=== PATIENT | female | born 1950 | race Caucasian/White ===

== ENCOUNTER 2023-11-18 12:26 | Outpatient (OUT) | payer MEDICARE, BC, SELFPAY ==
--- NOTE | 2023-11-18 | XR_ITS ---
The [address] [address] Patient Name: BASIL JHAVERI MRN: [id number] date: 1950 Sex: F Assigned Patient Location: Current Patient Location: Accession/Order Number: [id number] Exam Date: 11/18/2023 12:27 Report Date: 11/19/2023 07:02 At the request of: ARELIS PERALTA Procedure: XR foot RT min 3V PROCEDURE: XR foot RT min 3V HISTORY: RIGHT FOOT PAIN ; plantar foot pain COMPARISON: None. FINDINGS: BONES:Mild degenerative change of first metatarsophalangeal joint. Calcaneal plantar spur. Achilles tendon degenerative enthesophyte. SOFT TISSUES:No visible soft tissue swelling. EFFUSION:None visible. OTHER: Negative. XR/XR foot RT min 3V IMPRESSION: 1. Mild degenerative changes. 2. No acute abnormality. Electronically authenticated by: GUICHO IBARRA Date: 11/19/2023 07:02
== END 2023-11-18 12:27 | disposition home or self-care (01) ==
PROVIDERS: PCP Family Medicine; Visit Provider Podiatrist Foot & Ankle Surgery
DX: M79.671 Pain in right foot (principal); M19.071 Primary osteoarthritis, right ankle and foot
CPT/HCPCS: 73630